=== PATIENT | female | born 1990 | race Caucasian/White ===

== ENCOUNTER 2016-10-02 09:06 | Emergency (ER) | payer MEDICAID ==
[~2016-10-02] VITALS: Ht 188 cm; Wt 127.0 kg
[~2016-10-02 09:06] MED LIST: NORPTMEDS CO
[2016-10-02 09:59] LABS: Basophils # (auto) 0 uL; Basophils % (auto) 0.3 % (0.0-2.0); CONDITION Y; Eosinophils # (auto) 0.3 uL; Eosinophils % (auto) 2.4 % (0.0-7.0); Hematocrit 40.4 % (36.0-46.0); Hemoglobin 13.8 g/dL (12.2-16.2); Lymphocytes # (auto) 2.7 uL; Lymphocytes % (auto) 25.6 % (10.0-50.0); Mean Corpuscular Hemoglobin 30.2 pg (28.0-32.0); Mean Corpuscular Hgb Conc. 34.2 g/dL (32.0-36.0); Mean Corpuscular Volume 88.4 fL (80.0-100.0); Mean Platelet Volume 9.6 fL (7.4-10.4); Monocytes # (auto) 0.6 uL; Neutrophils # (auto) 6.9 uL; Neutrophils % (auto) 65.7 % (37.0-80.0); Platelet Count (auto) 262 10^3/uL (140-450); Red Cell Distribution Width 13.7 % (11.6-16.0); White Blood Cell 10.6 10^3/uL (4.4-10.8)
[2016-10-02 10:16] LABS: Albumin 3.4 g/dL (3.4-5.0); BUN/Creatinine Ratio 16.2; Calcium 8.5 mg/dL (8.5-10.1)
[2016-10-02 10:19] LABS: Bilirubin, Total 0.3 mg/dL (0.2-1.0); Total Protein 7.8 g/dL (6.4-8.2)
[2016-10-02 10:25] LABS: Urine Bilirubin Negative (Negative); Urine Blood Negative /uL (Negative); Urine Color Yellow (Yellow); Urine Glucose Normal (Normal); Urine Ketone Negative (Negative); Urine Mucus FEW (None Seen); Urine Nitrite Negative (Negative); Urine RBC 1 /hpf (0 - 4); Urine Squamous Epithelial Cell MANY /hpf (<5); Urine Urobilinogen Normal (Negative); Urine pH 5.5 (5.0-8.0)
[2016-10-02] MEDS ORDERED: NITROFURANTOIN (MONO) 100 mg CAP PO ONE (12:00)
[2016-10-02 14:13] VITALS: BP 139/80
== END 2016-10-02 15:03 | disposition home or self-care (01) ==
LOC: ER 09:06
DX: N39.0 Urinary tract infection, site not specified (principal); R19.7 Diarrhea, unspecified; I10 Essential (primary) hypertension; R07.9 Chest pain, unspecified
CPT/HCPCS: 36415; 74176; 80053; 81001; 81025; 85025

== ENCOUNTER 2016-12-30 23:31 | Emergency (ER) | payer MEDICAID ==
[~2016-12-30] VITALS: Ht 188 cm; Wt 129.3 kg
[2016-12-30 23:35] VITALS: BP 179/105
[2016-12-30 23:57] LABS: Hematocrit 40.7 % (36.0-46.0); Hemoglobin 14.4 g/dL (12.2-16.2); Mean Corpuscular Hemoglobin 31.3 pg (28.0-32.0); Mean Corpuscular Hgb Conc. 35.4 g/dL (32.0-36.0); Mean Corpuscular Volume 88.6 fL (80.0-100.0); Mean Platelet Volume 8.8 fL (6.9-10.8); Platelet Count (auto) 237 10^3/uL (140-450); Red Cell Distribution Width 13.4 % (11.8-14.3); White Blood Cell 10.9 10^3/uL (4.4-10.8)
[2016-12-31 00:06] LABS: Metamyelocytes % 0; Myelocytes % 0; Promyelocytes % 0; Reactive Lymphocytes 0
[2016-12-31 00:14] LABS: Albumin 3.7 g/dL (3.4-5.0); Anion Gap 7 (5-15); Aspartate Aminotransferase 16 U/L (15-37); BUN/Creatinine Ratio 10.4; Blood Urea Nitrogen 8 mg/dL (7-18); Carbon Dioxide 25 mmol/L (21-32); Chloride 110 mmol/L (98-107); GFR African American 117 mL/min; GFR Non-African American 96 mL/min; Glucose 110 mg/dL (74-106); Magnesium 2.5 mg/dL (1.6-2.6); Potassium 4.2 mmol/L (3.5-5.1); Sodium 142 mmol/L (136-145)
[2016-12-31 00:19] LABS: Alkaline Phosphatase 65 U/L (45-117); Bilirubin, Total 0.3 mg/dL (0.2-1.0); Total Protein 7.9 g/dL (6.4-8.2)
[2016-12-31 00:22] LABS: Platelet Estimate Adequate; RBC Morphology Normal
== END 2016-12-31 02:39 | disposition left against medical advice (07) ==
LOC: ER 23:36
DX: R07.89 Other chest pain (principal); Z53.21 Procedure and treatment not carried out due to patient leaving prior to being seen by health care provider
CPT/HCPCS: 36415; 80053; 83735; 84484; 84702; 85007; 85027; 93005

== ENCOUNTER 2023-12-15 22:36 | Emergency (ER) | payer MEDICAID ==
[~2023-12-15] VITALS: Ht 188 cm; Wt 119.5 kg
[2023-12-16] MEDS: HYDROcodone-ACET 5/325MG TAB PO ONE (00:08)
[2023-12-16 01:03] VITALS: BP 134/76; PULSE 72; RESP 19; TEMP 98.2; O2SAT 98
== END 2023-12-16 01:17 | disposition home or self-care (01) ==
LOC: ER 22:36
DX: S93.602A Unspecified sprain of left foot, initial encounter (principal); F12.90 Cannabis use, unspecified, uncomplicated; I10 Essential (primary) hypertension; X58.XXXA Exposure to other specified factors, initial encounter; Y93.89 Activity, other specified; Y92.89 Other specified places as the place of occurrence of the external cause; Y99.8 Other external cause status
CPT/HCPCS: 73610; 73630